=== PATIENT | male | born 1950 | race Asian ===

== ENCOUNTER 2018-01-11 08:20 | Outpatient (CLI) | payer OTHER | END 2018-01-11 23:00 | disposition home or self-care (01) | LOC: NM 08:20 | DX: I25.5 Ischemic cardiomyopathy (principal); I48.0 Paroxysmal atrial fibrillation | CPT/HCPCS: 93306; A9500; J2785 ==

== ENCOUNTER 2018-06-29 18:43 | Outpatient (CLI) | payer OTHER | END 2018-06-29 23:14 | disposition home or self-care (01) | LOC: LAB 18:43 | DX: Z79.01 Long term (current) use of anticoagulants (principal) | CPT/HCPCS: 85610 ==

== ENCOUNTER 2018-07-19 07:33 | Day surgery (SDC) | payer OTHER ==
[2018-07-19 08:57] LABS: PLATELET COUNT 227 K/uL (142-355)
[2018-07-19 09:07] LABS: POTASSIUM 4.1 mmol/L (3.6-5.2)
[2018-07-19 09:14] LABS: PARTIAL THROMBOPLASTIN TIME 27.9 SECONDS (24.5-33.6)
== END 2018-07-19 12:02 | disposition home or self-care (01) ==
LOC: OR 07:33
PROVIDERS: Student in an Organized Health Care Education/Training Program
PROC: 0DBN8ZZ Excision of Sigmoid Colon, Via Natural or Artificial Opening Endoscopic (ICD-10-PCS; principal; 2018-07-19)
PROC: 0DBK8ZZ Excision of Ascending Colon, Via Natural or Artificial Opening Endoscopic (ICD-10-PCS; 2018-07-19)
PROC: 0DBL8ZZ Excision of Transverse Colon, Via Natural or Artificial Opening Endoscopic (ICD-10-PCS; 2018-07-19)
PROC: 0DBM8ZZ Excision of Descending Colon, Via Natural or Artificial Opening Endoscopic (ICD-10-PCS; 2018-07-19)
DX: D12.7 Benign neoplasm of rectosigmoid junction (principal); D12.2 Benign neoplasm of ascending colon; D12.4 Benign neoplasm of descending colon; D12.3 Benign neoplasm of transverse colon; K63.5 Polyp of colon; K62.1 Rectal polyp; Z12.11 Encounter for screening for malignant neoplasm of colon; Z79.01 Long term (current) use of anticoagulants
CPT/HCPCS: 80053; 85027; 85610; 85730; J2001; J2250; J2405; J2704

== ENCOUNTER 2021-02-28 09:07 | Outpatient (CLI) | payer OTHER | END 2021-02-28 20:14 | disposition home or self-care (01) | LOC: CT 09:07 | PROVIDERS: ATTEND Nurse Practitioner Family | DX: F17.210 Nicotine dependence, cigarettes, uncomplicated (principal) ==